=== PATIENT | male | born 1970 | race Caucasian/White ===

== ENCOUNTER 2020-07-19 03:16 | Emergency (ER) | payer OTHER, SELFPAY ==
[2020-07-19 03:26] VITALS: BP 151/81; PULSE 79; RESP 18; TEMP 36.4; O2SAT 96; BMI 41.5
[2020-07-19] MEDS: famotidine 20 mg/2 mL INJ IVP (03:53)
[2020-07-19] MEDS: ondansetron 2 mg/ML SDV 2 mL 4 MG IVP (03:53)
[2020-07-19] MEDS: diphenhydrAMINE 50 mg/mL SDV 1mL IVP (03:53)
--- NOTE | 2020-07-19 05:53 | W.ED.ALLEREA ---
HPI - Allergic Reaction General: Chief complaint: Allergic Reaction Stated complaint: allergic reaction Time Seen by Provider: 07/19/20 03:27 History of Present Illness: HPI narrative: 50-year-old male presents after waking up with blotchy red rash, itching, diaphoresis, nausea, and shortness of breath at home. He took 50 mg of Benadryl, but has vomited since that time. He remains red and itchy. His shortness of breath and nausea improved to some degree. He has had a reaction like this before, but it has been several years. No known allergies to medications or foods. MD complaint: allergic reaction and hives Onset (ago): minute(s) Exposure: unknown and food (Possibly) Associated symptoms: Reports abdominal pain, difficulty breathing, facial swelling, hoarseness, itching, nausea and vomiting; Deny dysphagia or lip swelling Review of Systems ENMT: Reports: hoarseness GI: Reports: abdominal pain, nausea and vomiting; Denies: dysphagia All/Imm: Reports: facial swelling Physical Exam Chest: COMMONS NORMALS: normal inspection of the chest Resp: COMMON NORMALS: normal respiratory effort, No use of accessory muscles and clear to auscultation bilaterally AUSCULTATION: clear to auscultation bilaterally Cardio: COMMON NORMALS: regular rate and regular rhythm RATE: regular rate RHYTHM: regular rhythm GI: COMMON NORMALS: Normal to inspection, nondistended, normoactive bowel sounds present and Soft to palpation PALPATION: Yes Soft to palpation Skin: NARRATIVE SKIN EXAM: Widespread urticarial rash Course Vital Signs: Vital signs: Vital Signs Temperature 97.6 F 07/19/20 03:26 Pulse Rate 79 07/19/20 03:26 Respiratory Rate 18 07/19/20 03:26 Blood Pressure 151/81 07/19/20 03:26 Pulse Oximetry 96 07/19/20 03:26 MDM - Allergic Reaction MDM Narrative: Medical decision making narrative: Patient exhibited significant improvement following administration of IV Benadryl, Solu-Medrol, and Pepcid. Will be discharged on steroids, told to take Benadryl for the next 48 hours, then as needed, and to continue his Zyrtec Discharge Plan Discharge Patient Disposition: Home Clinical Impression: Allergic reaction Qualifiers: Encounter type: initial encounter Qualified Code(s): T78.40XA - Allergy, unspecified, initial encounter Condition: Stable Prescriptions: New Medrol (Ralph) 4 mg tablets,dose pack See Rx Instructions .ROUTE .COMPLEX Qty: 21 RF: 0 Discharge Orders: Discharge ED (Routine); Ordered 07/19/20 Ordered By: Ridge Holt Referrals: James Heard DO [Primary Care Provider] - 1-3 days Discharge Diet: Usual diet Discharge Activity: Increase activity as tolerated Patient Instructions: Allergic Reaction Activity Restrictions/Additional Instructions: Use Benadryl, 1 pill every 6 hours for the next 36 hours, then as needed. Continue your Zantac and Zyrtec at home. Add prescribed medication until gone. 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
== END 2020-07-19 05:23 | disposition home or self-care (01) ==
PROVIDERS: Emergency Provider Emergency Medicine; PCP Internal Medicine
DX: T78.40XA Allergy, unspecified, initial encounter (principal)
CPT/HCPCS: 96374; 96375; 99283; J1200; J2405; J2930; J3490

== ENCOUNTER 2024-07-22 22:01 | Emergency (ER) | payer SELFPAY ==
[2024-07-22 22:18] VITALS: BP 155/87; PULSE 94; RESP 16; TEMP 37; O2SAT 97; BMI 43.0
--- NOTE | 2024-07-22 22:21 | ECG_ITS ---
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 Measurements Intervals [place] Rate: 92 P: 24 CA: 156 QRS: 65 QRSD: 103 T: -1 QT: 332 QTc: 413 Interpretive Statements SINUS RHYTHM PROBABLE INFERIOR MYOCARDIAL INFARCTION , PROBABLY OLD [35 ms Q WAVE IN II/aVF] Compared to ECG 03/03/2018 11:15:56 Myocardial infarct finding now present Sinus arrhythmia no longer present Electronically Signed On 07-23-2024 11:34:57 CDT by Sonny Quinteros M.D. [id number]
--- NOTE | 2024-07-22 23:02 | W.ED.GENADLT ---
Documented by User: SAMANTHA Chung 07/23/24 00:53 HPI - General Adult General: Chief complaint: Chest Pain Stated complaint: BP High Time Seen by Provider: 07/22/24 22:35 Source: patient and family () Mode of arrival: ambulatory Limitations: no limitations History of Present Illness: Sonny is a 54-year-old male who presents to the emergency department for a chief complaint of an elevated heart rate and blood pressure. He was sitting in his chair tonight when he felt his heart rate pulse -describes as beating hard not necessarily fast. No palpitations. He had mild chest discomfort and he states he felt anxious but states this is not overly out of the ordinary as he sometimes will have chest pain with his stress/anxiety. He checked his blood pressure little bit after and stated that it was elevated-highest 150s systolic. He denied shortness of breath, loss of vision, blurry vision, headache, dizziness, or weakness. His normal heart rate range is between 69-72 and his normal blood pressure range is 137-143/70s (patient is very specific about these numbers). He has a 9-year history of hypertension in which he has been taking propanolol. He was seen by his PCP last week where he was started on amlodipine for uncontrolled blood pressure. He also started atorvastatin yesterday. Onset (ago): hour(s) Severity: mild Associated symptoms: Reports chest pain (mild chest discomfort) and nausea; Deny diaphoresis, dyspnea, headache(s), palpitations or syncope Treatments prior to arrival: none Related Data Previous Rx's ?Medication ?Instructions ?Recorded methylprednisolone 4 mg tablets in See Rx Instructions PO .COMPLEX 07/19/20 a dose pack (Medrol (Ralph)) #21 ea Allergies Allergy/AdvReac Type Severity Reaction Status Date / Time famotidine (From Pepcid) Allergy ADR-Nausea Verified 07/22/24 22:26 lisinopril Allergy palpitation Verified 07/22/24 22:26 s Review of Systems Const: Denies: fever(s), chills, body aches, fatigue or diaphoresis Eyes: Denies: blurry vision or eye discomfort Card: Reports: chest pain (mild chest discomfort); Denies: palpitations, irregular heart rhythm, edema, swelling of feet/ankles, syncope, pre-syncope, dyspnea on exertion or orthopnea Resp: Denies: dyspnea GI: Reports: nausea; Denies: abdominal pain Musc: Denies: back pain Neuro: Denies: headache(s) or dizziness Physical Exam Const: COMMON NORMALS: no acute distress, patient oriented x3, no limitations, alert and well nourished GENERAL APPEARANCE: cooperative NUTRITIONAL APPEARANCE: obese morbidly obese (BMI 43.0) ORIENTATION/CONSCIOUSNESS: Yes awake, Yes oriented to person, Yes oriented to place and Yes oriented to time Chest: COMMONS NORMALS: normal inspection of the chest and normal palpation of entire chest wall OTHER: states palpation of his anterior chest actually makes his chest pain go away Resp: COMMON NORMALS: normal respiratory effort and clear to auscultation bilaterally AUSCULTATION: clear to auscultation bilaterally Cardio: COMMON NORMALS: regular rate and regular rhythm RATE: regular rate RHYTHM: regular rhythm GI: COMMON NORMALS: non-tender INSPECTION: Yes central obesity Extremity: COMMON NORMALS: no clubbing, cyanosis or edema, no calf tenderness and no pedal edema GENERAL: Yes normal exam except as noted Neuro: COMMON NORMALS: patient oriented x3 SENSORIUM/ORIENTATION: Yes alert, Yes oriented to person, Yes oriented to place and Yes oriented to time Skin: COMMON NORMALS: no rashes or lesions noted GENERAL SKIN EXAM: no rashes or lesions noted Course Vital Signs: Vital signs: Vital Signs Temperature 98.6 F 07/22/24 22:18 Pulse Rate 75 07/23/24 02:14 Respiratory Rate 16 07/23/24 02:14 Blood Pressure 144/72 07/23/24 02:14 Pulse Oximetry 95 07/23/24 02:14 Oxygen Delivery Me thod Room Air 07/23/24 02:14 [facility] - General Adult Lab Data 07/22/24 23:36 07/22/24 23:36 Radiology Impressions Chest X-Ray 07/22/24 23:16 IMPRESSION: No acute cardiopulmonary abnormality. Laboratory Results WBC 11.17 10^3/uL (3.29-11.43) 07/22/24 23:36 RBC 4.70 10^6/uL (3.85-5.65) 07/22/24 23:36 Hgb 15.40 g/dL (11.27-16.99) 07/22/24 23:36 Hct 44.1 % (37-53) 07/22/24 23:36 MCV 93.8 fl (82-101) 07/22/24 23:36 MCH 32.8 pg (27-33) 07/22/24 23:36 MCHC 34.9 g/dL (30-55) 07/22/24 23:36 RDW 11.9 % (12.1-15.1) L 07/22/24 23:36 Plt Count 283 10^3/cmm (157-399) 07/22/24 23:36 MPV 9.3 fL (7.4-10.4) 07/22/24 23:36 Neut % (Auto) 51.3 % 07/22/24 23:36 Lymph % (Auto) 32.4 % 07/22/24 23:36 [place] % (Auto) 10.9 % 07/22/24 23:36 Eos % (Auto) 2.7 % 07/22/24 23:36 Baso % (Auto) 1.0 % 07/22/24 23:36 Neut # (Auto) 5.73 10^3/uL (1.8-7.7) 07/22/24 23:36 Lymph # (Auto) 3.6 10^3/uL (0.8-4.8) 07/22/24 23:36 [place] # (Auto) 1.2 10^3/uL (0.2-0.9) H 07/22/24 23:36 Eos # (Auto) 0.3 10^3/uL (0.0-0.8) 07/22/24 23:36 Baso # (Auto) 0.1 10^3/uL (0.0-0.1) 07/22/24 23:36 Nucleated RBC % (auto) 0 % 07/22/24 23:36 Nucleated RBCs # 0.0 /100WBC 07/22/24 23:36 Sodium 137 mmol/L (136-145) 07/22/24 23:36 Potassium 4.5 mmol/L (3.5-5.1) 07/22/24 23:36 Chloride 100 mmol/L (98-107) 07/22/24 23:36 Carbon Dioxide 24 mmol/L (22-29) 07/22/24 23:36 Anion Gap 17.5 (5-19) 07/22/24 23:36 BUN 12 mg/dL (6-20) 07/22/24 23:36 Creatinine 0.8 mg/dL (0.7-1.2) 07/22/24 23:36 GFR Calculation 100.0 mL/min (90-130) 07/22/24 23:36 Glucose 174 mg/dL (65-115) H 07/22/24 23:36 Calculated Osmolality 288 mOsm/kg (285-295) 07/22/24 23:36 Calcium 9.5 mg/dL (8.5-10.5) 07/22/24 23:36 Total Bilirubin 0.2 mg/dL (0.15-1.2) 07/22/24 23:36 AST 5 U/L (0-40) 07/22/24 23:36 ALT < 5 U/L (0-41) 07/22/24 23:36 Alkaline Phosphatase 131 U/L (40-130) H 07/22/24 23:36 Troponin T Baseline 7 ng/L (0-15) 07/22/24 23:36 Troponin T 120 Minute 6.50 ng/L (0-15) 07/23/24 01:49 Delta Troponin T -0.50 ABS# (0-10) L 07/23/24 01:49 Total Protein 7.0 g/dL (6.6-8.7) 07/22/24 23:36 Albumin 4.4 g/dL (3.5-5.2) 07/22/24 23:36 Globulin 2.6 g/dL (1.3-4.6) 07/22/24 23:36 Discharge Plan Discharge Patient Disposition: Home Clinical Impression: Chest pain Condition: Stable Prescriptions: No Action Medrol (Ralph) 4 mg tablets,dose pack See Rx Instructions .ROUTE .COMPLEX Qty: 21 0RF Rx Instructions: orally per package directions Discharge Orders: Discharge ED (Routine); Ordered 07/23/24 Ordered By: Osman Giles Referrals: Eduardo Leblanc MD [Primary Care Provider, [facility]] Discharge Diet: Usual diet Discharge Activity: Increase activity as tolerated Patient Instructions: Chest Pain (ED) Activity Restrictions/Additional Instructions: Your EKG, chest x-ray, and blood work are all reassuring. Troponin is not elevated either initially or after 2 hours upon recheck. This implies that what you are feeling is not caused by a heart attack. 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6 F 07/22/24 22:18 Pulse Rate 75 07/23/24 02:14 Respiratory Rate 16 07/23/24 02:14 Blood Pressure 144/72 07/23/24 02:14 Pulse Oximetry 95 07/23/24 02:14 Oxygen Delivery Me thod Room Air 07/23/24 02:14 MDM - General Adult Medical Decision Making Addendum by Dr. Giles: Patient signed out to me pending 2-hour troponin with normal EKG and normal initial troponin. Patient describes chest pain and elevated blood pressure however vital signs are stable and EKG and troponin are stable x 2. I do not suspect ACS, PE, pneumonia, or any other emergent process warranting further workup at this time. He will be discharged home in stable and improved condition follow-up primary care as needed Lab Data 07/22/24 23:36 07/22/24 23:36 Radiology Impressions Chest X-Ray 07/22/24 23:16 IMPRESSION: No acute cardiopulmonary abnormality. Laboratory Results WBC 11.17 10^3/uL (3.29-11.43) 07/22/24 23:36 RBC 4.70 10^6/uL (3.85-5.65) 07/22/24 23:36 Hgb 15.40 g/dL (11.27-16.99) 07/22/24 23:36 Hct 44.1 % (37-53) 07/22/24 23:36 MCV 93.8 fl (82-101) 07/22/24 23:36 MCH 32.8 pg (27-33) 07/22/24 23:36 MCHC 34.9 g/dL (30-55) 07/22/24 23:36 RDW 11.9 % (12.1-15.1) L 07/22/24 23:36 Plt Count 283 10^3/cmm (157-399) 07/22/24 23:36 MPV 9.3 fL (7.4-10.4) 07/22/24 23:36 Neut % (Auto) 51.3 % 07/22/24 23:36 Lymph % (Auto) 32.4 % 07/22/24 23:36 [place] % (Auto) 10.9 % 07/22/24 23:36 Eos % (Auto) 2.7 % 07/22/24 23:36 Baso % (Auto) 1.0 % 07/22/24 23:36 Neut # (Auto) 5.73 10^3/uL (1.8-7.7) 07/22/24 23:36 Lymph # (Auto) 3.6 10^3/uL (0.8-4.8) 07/22/24 23:36 [place] # (Auto) 1.2 10^3/uL (0.2-0.9) H 07/22/24 23:36 Eos # (Auto) 0.3 10^3/uL (0.0-0.8) 07/22/24 23:36 Baso # (Auto) 0.1 10^3/uL (0.0-0.1) 07/22/24 23:36 Nucleated RBC % (auto) 0 % 07/22/24 23:36 Nucleated RBCs # 0.0 /100WBC 07/22/24 23:36 Sodium 137 mmol/L (136-145) 07/22/24 23:36 Potassium 4.5 mmol/L (3.5-5.1) 07/22/24 23:36 Chloride 100 mmol/L (98-107) 07/22/24 23:36 Carbon Dioxide 24 mmol/L (22-29) 07/22/24 23:36 Anion Gap 17.5 (5-19) 07/22/24 23:36 BUN 12 mg/dL (6-20) 07/22/24 23:36 Creatinine 0.8 mg/dL (0.7-1.2) 07/22/24 23:36 GFR Calculation 100.0 mL/min (90-130) 07/22/24 23:36 Glucose 174 mg/dL (65-115) H 07/22/24 23:36 Calculated Osmolality 288 mOsm/kg (285-295) 07/22/24 23:36 Calcium 9.5 mg/dL (8.5-10.5) 07/22/24 23:36 Total Bilirubin 0.2 mg/dL (0.15-1.2) 07/22/24 23:36 AST 5 U/L (0-40) 07/22/24 23:36 ALT < 5 U/L (0-41) 07/22/24 23:36 Alkaline Phosphatase 131 U/L (40-130) H 07/22/24 23:36 Troponin T Baseline 7 ng/L (0-15) 07/22/24 23:36 Troponin T 120 Minute 6.50 ng/L (0-15) 07/23/24 01:49 Delta Troponin T -0.50 ABS# (0-10) L 07/23/24 01:49 Total Protein 7.0 g/dL (6.6-8.7) 07/22/24 23:36 Albumin 4.4 g/dL (3.5-5.2) 07/22/24 23:36 Globulin 2.6 g/dL (1.3-4.6) 07/22/24 23:36 All radiology interpretation(s) finalized by discharge Discharge Plan Discharge Patient Disposition: Home Clinical Impression: Chest pain Condition: Stable Prescriptions: No Action Medrol (Ralph) 4 mg tablets,dose pack See Rx Instructions .ROUTE .COMPLEX Qty: 21 0RF Rx Instructions: orally per package directions Discharge Orders: Discharge ED (Routine); Ordered 07/23/24 Ordered By: Osman Giles Referrals: Eduardo Leblanc MD [Primary Care Provider, Family Practice] Discharge Diet: Usual diet Discharge Activity: Increase activity as tolerated Patient Instructions: Chest Pain (ED) Activity Restrictions/Additional Instructions: Your EKG, chest x-ray, and blood work are all reassuring. Troponin is not elevated either initially or after 2 hours upon recheck. This implies that what you are feeling is not caused by a heart attack. It is safe you to go home and follow-up with your primary doctor as you normally would Print Language: Wolof Coding Level of Care Code ED Square Shear Operator for Scottie [place]
--- NOTE | 2024-07-22 23:16 | XRR_ITS ---
PROCEDURE INFORMATION: Exam: XR Chest Exam date and time: 07/22/2024 11:18 PM Age: 54 years old Clinical indication: Pain; Chest pressure; Additional info: Chest pain TECHNIQUE: Imaging protocol: Radiologic exam of the chest. Views: 1 view. COMPARISON: CR XR chest 1V [id number] 03/03/2018 8:04 AM FINDINGS: Lungs: Clear, symmetrically inflated lungs. Pleural spaces: No pleural effusion. No pneumothorax. Heart/Mediastinum: Cardiac silhouette is normal in size for technique. Bones/joints: Age appropriate. XR/XR chest 1V portable [id number] IMPRESSION: No acute cardiopulmonary abnormality.
[2024-07-22 23:51] LABS: Basophils # 0.1 10^3/uL (0.0-0.1); Eosinophils # 0.3 10^3/uL (0.0-0.8); Eosinophils % 2.7 %; Hematocrit 44.1 % (37-53); Lymphocytes # 3.6 10^3/uL (0.8-4.8); Lymphocytes % 32.4 %; Mean Corpuscular HGB Conc 34.9 g/dL (30-55); Mean Corpuscular Hemoglobin 32.8 pg (27-33); Mean Corpuscular Volume 93.8 fl (82-101); Mean Platelet Volume 9.3 fL (7.4-10.4); Monocytes # 1.2 10^3/uL (0.2-0.9); Monocytes % 10.9 %; Neutrophils # 5.73 10^3/uL (1.8-7.7); Neutrophils % 51.3 %; Nucleated Red Blood Cells % 0 %; Platelet Count 283 10^3/cmm (157-399); Red Cell Distribution Width 11.9 % (12.1-15.1); White Blood Count 11.17 10^3/uL (3.29-11.43)
[2024-07-23] VITALS: BP 143/76; PULSE 83; RESP 16; O2SAT 96
[2024-07-23 00:24] LABS: Troponin(5th) Baseline 7 ng/L (0-15)
[2024-07-23 00:29] LABS: Albumin Level 4.4 g/dL (3.5-5.2); Alkaline Phosphatase 131 U/L (40-130); Blood Urea Nitrogen 12 mg/dL (6-20); Calcium 9.5 mg/dL (8.5-10.5); Carbon Dioxide 24 mmol/L (22-29); Chloride 100 mmol/L (98-107); Creatinine Clr Calc Pharmacy 143.2538; Globulin 2.6 g/dL (1.3-4.6); Glucose 174 mg/dL (65-115); Osmolality Calculated 288 mOsm/kg (285-295); Sodium 137 mmol/L (136-145); Total Bilirubin 0.2 mg/dL (0.15-1.2)
[2024-07-23 00:30] LABS: Anion Gap 17.5 (5-19); Potassium 4.5 mmol/L (3.5-5.1)
[2024-07-23 00:41] LABS: Alanine Aminotransferase < 5 U/L (0-41); Aspartate Amino Transferase 5 U/L (0-40)
[2024-07-23 01:00] VITALS: BP 143/76; PULSE 75; RESP 16; O2SAT 96
--- NOTE | 2024-07-23 01:16 | ECG_ITS ---
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
[2024-07-23 02:14] VITALS: BP 144/72; PULSE 75; RESP 16; O2SAT 95
[2024-07-23 02:43] VITALS: BP 135/83; PULSE 72; RESP 16; O2SAT 95
== END 2024-07-23 02:44 | disposition home or self-care (01) ==
PROVIDERS: Emergency Provider Physician Assistant; PCP Family Medicine
DX: R07.9 Chest pain, unspecified (principal); I10 Essential (primary) hypertension
CPT/HCPCS: 36415; 71045; 80053; 84484; 85025; 93005; 99285